=== PATIENT | female | born 1970 | race African-American/Black ===

== ENCOUNTER → 2020-04-11 | Outpatient (CLI) | payer BC | LOC: MAMMO 08:34 | PROVIDERS: ATTEND Obstetrics & Gynecology | DX: Z12.31 Encounter for screening mammogram for malignant neoplasm of breast (principal) | CPT/HCPCS: 77067 ==

== ENCOUNTER → 2022-02-09 | Outpatient (CLI) | payer BC | LOC: MAMMO 10:44 | PROVIDERS: ATTEND Obstetrics & Gynecology | DX: Z12.31 Encounter for screening mammogram for malignant neoplasm of breast (principal) | CPT/HCPCS: 77067 ==